=== PATIENT | female | born 1960 | race Caucasian/White ===

== ENCOUNTER 2022-01-19 08:48 | Emergency (ER) | payer OTHER ==
[~2022-01-19] VITALS: Ht 162.6 cm; Wt 61.2 kg
[2022-01-19 09:00] VITALS: BP_SYST 95
--- NOTE | 2022-01-19 09:00 | NUR ---
Patient to ER bed 3 for evaluation. Side rails up. Report given to Bradley PATEL.
--- NOTE | 2022-01-19 09:02 | NUR ---
Pt in bed 3 sitting in chair for comfort per pt report
--- NOTE | 2022-01-19 09:03 | NUR ---
Pt being seen by ED physician in bed
--- NOTE | 2022-01-19 09:39 | NUR ---
orthostatic VS done on pt. IV access in place, NS infusing. Pt in no acute distress in bed with no complaints at this time
[2022-01-19] MEDS ORDERED: NACL 0.9% 1,000 ML IV ONE (09:45)
[2022-01-19 09:56] LABS: CALCIUM 8.9 mg/dL (8.4-11.0); CREATININE 0.98 mg/dL (0.55-1.30)
[2022-01-19 10:02] LABS: TOTAL BILIRUBIN 0.2 mg/dL (0.0-1.0)
[2022-01-19 10:12] LABS: BASOPHILS % (AUTO) 0.2 % (0.0-2.0); EOSINOPHILS % (AUTO) 0.1 % (0.0-4.0); HEMATOCRIT 37.5 % (36-48); HEMOGLOBIN 12.8 g/dL (12.0-16.0); LYMPHOCYTES # (AUTO) 0.5 K/uL (1.0-5.5); LYMPHOCYTES % (AUTO) 8.7 % (20.5-51.5); MEAN CORPUSCULAR HEMOGLOBIN 32 pg (27-31); MEAN CORPUSCULAR HGB CONC 34 % (32-36); MEAN CORPUSCULAR VOLUME 95 fL (79.0-98.0); MONOCYTES # (AUTO) 0.1 K/uL (0.0-1.0); MONOCYTES % (AUTO) 2.4 % (1.7-9.3); NEUTROPHILS # (AUTO) 5.5 K/uL (1.8-7.7); NEUTROPHILS % (AUTO) 88.6 % (40.0-70.0); PLATELET COUNT (AUTO) 201 K/uL (130-430); RED BLOOD CELL COUNT(AUTO) 3.97 MIL/uL (4.2-6.2); RED CELL DISTRIBUTION WIDTH 13.1 % (9.0-15.0); WHITE BLOOD COUNT (AUTO) 6.2 K/uL (4.8-10.8)
[2022-01-19] MEDS ORDERED: MECLIZINE HCL 25 MG TABLET (ANITVERT) PO ONE (11:30)
[2022-01-19] MEDS ORDERED: MECL-160 PO (12:59)
--- NOTE | 2022-01-19 13:24 | NUR ---
Patient given written and verbal discharge instructions and verbalizes understanding. ER MD discussed with patient the results and treatment provided. Patient in stable condition. ID arm band removed. IV catheter removed intact and dressing applied, no active bleeding. Rx of meclizine given. Patient educated on pain management and to follow up with PMD. Pain Scale . Opportunity for questions provided and answered. Medication side effect fact sheet provided. Pt self ambulated out of ED in no acute discomfort
[2022-01-19 13:25] VITALS: BP_SYST 132
== END 2022-01-19 13:25 | disposition home or self-care (01) ==
LOC: SED 08:48
DX: E86.0 Dehydration (principal); R42 Dizziness and giddiness; R00.1 Bradycardia, unspecified
CPT/HCPCS: 36415; 80053; 82962; 83735; 84484; 85025; 93005; 96360; 99284; J8597